=== PATIENT | female | born 1985 | race Caucasian/White ===

== ENCOUNTER 2018-11-02 08:31 | Inpatient (IN) | payer OTHER ==
--- NOTE | 2018-11-02 08:55 | PCM.LDHP ---
L&D History of Present Illness - General Date of Service: 11/02/18 Admit Problem/Dx: Patient Status Order with Admit Dx/Problem 11/02/18 08:45 Patient Status [ADT] Routine Admission Diagnosis/Problem Admission Diagnosis/Problem Labor established Source of Information: Patient History Limitations: Reports: No Limitations - History of Present Illness Introduction:: 11/02/18 33 yo here in active labor. Ctx started this am around 0400 at home. Membranes intact. GBS negative. All STI testing negative. O+ blood type. here for support. Declines IV and pain medications. Anticipating of girl. Timing/Duration: Reports: minutes: (2-3) Severity: Moderate Improves with: Reports: Movement Worsens with: Reports: None Associated Symptoms: Denies: vaginal bleeding, vaginal fluid Past Medical History [employer] History: Reports: Spontaneous : 4 Para: 2 LMP (Approximate): H&P Review of Systems - Review of Systems: Review Of Systems: See Below General: Reports: No Symptoms HEENT: Reports: No Symptoms Pulmonary: Reports: No Symptoms Cardiovascular: Reports: No Symptoms Gastrointestinal: Reports: No Symptoms Genitourinary: Reports: No Symptoms Musculoskeletal: Reports: No Symptoms Skin: Reports: No Symptoms Psychiatric: Reports: No Symptoms Neurological: Reports: No Symptoms Hematologic/Lymphatic: Reports: No Symptoms Immunologic: Reports: No Symptoms L&D Exam - Exam Exam: See Below - OB Specific Contraction Intensity: Strong Movement: Active Heart Tones: Present Heart Rate (FHR) Variability: Moderate (6-25 bmp) Presentation: Vertex Estimated Weight: 7.5# - Anderson Score Anderson Score Cervix Position: Midposition Anderson Score Consistency: Soft Anderson Score Effacement: >80% Anderson Score Dilation: > 5 cm Anderson Score Infant's Station: -1 ,0 Anderson Score Total: 11 - Exam General: Alert, Oriented HEENT: PERRLA, Conjunctiva Clear, EACs Clear, EOMI, Hearing Intact, Mucosa Moist & [place], Nares Patent, Normal Nasal Septum, Posterior Pharynx Clear, TMs Clear Neck: Supple, Trachea Midline Lungs: Clear to Auscultation, Normal Respiratory Effort Cardiovascular: Regular Rate, Regular Rhythm GI/Abdominal Exam: Normal Bowel Sounds, Soft, Non-Tender Rectal Exam: Normal Exam, Normal Rectal Tone Genitourinary: Normal external exam, Normal bimanual exam, Cervical dilitation, Enlarged uterus. No: Vaginal bleeding Back Exam: Normal Inspection, Full Range of Motion Extremities: Normal Inspection, Normal Range of Motion, Non-Tender, No Pedal Edema, Normal Capillary Refill Skin: Warm, Dry, Intact Neurological: Cranial Nerves Intact, Reflexes Equal Bilateral Psychiatric: Alert, Normal Affect, Normal Mood - Problem List (1) SNOMED Code(s): 64144597 ICD Code: Z34.90 - ENCNTR FOR SUPRVSN OF NORMAL , UNSP, UNSP TRIMESTER Status: Acute Current Visit: Yes (2) Mother negative for group B Streptococcus colonization SNOMED Code(s): 448841291, 958556820 ICD Code: TFJ7690 - Status: Acute Current Visit: Yes (3) Blood type O+ SNOMED Code(s): 401562853 ICD Code: Z67.40 - TYPE O BLOOD, RH POSITIVE Status: Acute Current Visit : Yes Problem List Initiated/Reviewed/Updated: Yes Orders Last 24hrs: Active Orders 24 hr Category Date Time Status Patient Status [ADT] Routine ADT 11/02/18 08:45 Ordered Communication Order [RC] ASDIRECTED Care 11/02/18 08:45 Ordered Heart Tones [RC] PER UNIT ROUTINE Care 11/02/18 08:45 Ordered Notify Provider Vital Signs [RC] PRN Care 11/02/18 08:48 Ordered Notify Provider [RC] PRN Care 11/02/18 08:45 Ordered Up ad Christel [RC] ASDIRECTED Care 11/02/18 08:45 Ordered VTE/DVT Education [RC] Click to Edit Care 11/02/18 08:47 Ordered Vital Signs [RC] PER UNIT ROUTINE Care 11/02/18 08:45 Ordered Regular Diet [DIET] Diet 11/02/18 Breakfast Ordered CBC WITH AUTO DIFF [HEME] Routine Lab 11/02/18 08:45 Ordered UA W/MICROSCOPIC [URIN] Routine Lab 11/02/18 08:45 Ordered DVT/VTE Prophylaxis Reflex [OM.PC] Routine Oth 11/02/18 08:45 Ordered Resuscitation Status Routine Resus Stat 11/02/18 08:45 Ordered Assessment/Plan Comment:: 11/02/18 33 yo here in active labor. SVE 7/100/0 GBS negative O + Desires no IV, no pain medication in labor Membranes intact Short strip obtained and was category 1 tracing Plan: Anticipate of female Tub for pain control No IV unless necessary Minimal monitoring, doptone mostly per patient request
[2018-11-02] MEDS ORDERED: Benzocaine 20% Top Spray 56 GM Bottle TOP ONE (09:43)
[2018-11-02] MEDS ORDERED: Witch Hazel Medicated Pads 100/Jar TOP ONE (09:43)
[2018-11-02] MEDS ORDERED: Oxytocin 10 Units/1 ML SDV IM PRN (09:43)
[2018-11-02] MEDS ORDERED: Lanolin 100% Cream 40 GM Tube TOP ONE (09:43)
--- NOTE | 2018-11-02 09:55 | PCM.DEL ---
L & D Note - General Info Date of Service: 11/02/18 Mother's Due Date: 11/03/18 - Delivery Note Labor: Spontaneous Delivery Outcome: Livebirth Infant Delivery Method: Spontaneous Vaginal Delivery-Single Infant Delivery Mode: Spontaneous Presentation: Left Occiput Anterior (TRACE) Nuchal Cord: None Anesthesia Type: None Episiotomy Type: None Laceration: None Placenta: Intact, Spontaneous Cord: 3 Vessels Estimated Blood Loss: 250 Resuscitation Needed: No Score 1 min: 9 Score 5 min: 10 Second Stage Interventions: Reports: Second Nurse Assessed Progress of Descent, Second Nurse Reviewed Contraction Pattern, Second Nurse Reviewed Heart Tones, Encouragement Given, Pushing Effectively, Pushing, Pulls Own Legs Back, Pushing, Right Side Delivery Comments (Free Text/Narrative):: 11/02/18 33 yo at 39 6/7 weeks presented in spontaneous labor this morning and delivered a viable female infant at 0929 after AROM of clear fluid. She progressed quickly and pushed on her right side delivering in TRACE position. Infant was placed on mothers abdomen with a spontaneous cry. Delayed cord clamping completed. Placenta delivered intact spontaneously with a 3 vessel cord. Fundus firm after fundal massage. EBL 250 mL. No pitocin given per patient request. No cervical or vaginal lacerations, perineum intact. Female infant weighs 7 lb 12 oz. - General Info Date of Service: 11/02/18 Functional Status: Reports: Pain Controlled - Review of Systems General: Reports: No Symptoms HEENT: Reports: No Symptoms Pulmonary: Reports: No Symptoms Cardiovascular: Reports: No Symptoms Gastrointestinal: Reports: No Symptoms Genitourinary: Reports: No Symptoms Musculoskeletal: Reports: No Symptoms Skin: Reports: No Symptoms Neurological: Reports: No Symptoms Psychiatric: Reports: No Symptoms - Patient Data Lab Results Last 24 Hours: Laboratory Results - last 24 hr 11/02/18 11/02/18 Range/Units 08:45 08:45 WBC 10.2 (4.5-11.0) K/uL RBC 3.73 (3.30-5.50) M/uL Hgb 11.9 L (12.0-15.0) g/dL Hct 35.9 L (36.0-48.0) % MCV 96 (80-98) fL MCH 32 H (27-31) pg MCHC 33 (32-36) % Plt Count 249 (150-400) K/uL Neut % (Auto) 75 H (36-66) % Lymph % (Auto) 17 L (24-44) % [place] % (Auto) 8 H (2-6) % Eos % (Auto) 0 L (2-4) % Baso % (Auto) 0 (0-1) % Urine Color Yellow (YELLOW) Urine Appearance Slightly cloudy A (CLEAR) Urine pH 6.5 (5.0-8.0) Ur Specific [place] 1.030 (1.008-1.030) Urine Protein Trace H (NEGATIVE) mg/dL Urine Glucose (UA) Normal (NEGATIVE) mg/dL Urine Ketones 15 H (NEGATIVE) mg/dL Urine Occult Blood Negative (NEGATIVE) Urine Nitrite Negative (NEGATIVE) Urine Bilirubin Negative (NEGATIVE) Urine Urobilinogen Normal (0.2-1.0) EU/dL Ur Leukocyte Esterase Negative (NEGATIVE) Urine RBC Not seen (0-5) Urine WBC 0-5 (0-5) Ur Epithelial Cells Moderate Amorphous Sediment Not seen Urine Bacteria Many Urine Mucus Moderate Med Orders - Current: Current Medications Benzocaine (Urkb-E-Foqdlpj 20% Baggs) 0 gm TOP Q4H ONE Stop: 11/02/18 09:44 Emollient Ointment (Lansinoh Hpa) 1 gm TOP ASDIRECTED ONE Stop: 11/02/18 09:44 Oxytocin (Pitocin) 10 unit IM ASDIRECTED PRN PRN Reason: excessive vaginal bleeding Witch Otilia (Tucks) 1 pad TOP ASDIRECTED ONE Stop: 11/02/18 09:44 - Exam General: Alert, Oriented HEENT: Pupils Equal, Pupils Reactive, EOMI, Mucous Membr. Moist/[place] Neck: Supple Lungs: Clear to Auscultation, Normal Respiratory Effort Cardiovascular: Regular Rate, Regular Rhythm GI/Abdominal Exam: Normal Bowel Sounds, Soft, Non-Tender, Pelvis Stable (Female) Exam: Normal External Exam, Normal Bimanual Exam, Enlarged Uterus, Vaginal Bleeding. No: Vaginal Lesions, Vaginal Tears Back Exam: Normal Inspection, Full Range of Motion Extremities: Normal Inspection, Normal Range of Motion, Non-Tender, No Pedal Edema, Normal Capillary Refill Skin: Warm, Dry, Intact Wound/Incisions: Healing Well Neurological: No New Focal Deficit Psy/Mental Status: Alert, Normal Affect, Normal Mood - Problem List & Annotations (1) SNOMED Code(s): 92977716 Code(s): Z34.90 - ENCNTR FOR SUPRVSN OF NORMAL , UNSP, UNSP TRIMESTER Status: Acute Current Visit: Yes (2) Mother negative for group B Streptococcus colonization SNOMED Code(s): 141632917, 542997366 Code(s): XJM8863 - Status: Acute Current Visit: Yes (3) Blood type O+ SNOMED Code(s): 058345818 Code(s): Z67.40 - TYPE O BLOOD, RH POSITIVE Status: Acute Current Visit: Yes (4) Normal vaginal delivery SNOMED Code(s): 81362794, 412263900 Code(s): O80 - ENCOUNTER FOR FULL-TERM UNCOMPLICATED DELIVERY Status: Acute Current Visit: Yes (5) started SNOMED Code(s): 072846082 Code(s): SAD0267 - Status: Acute Current Visit: Yes - Problem List Review Problem List Initiated/Reviewed/Updated: Yes - My Orders Last 24 Hours: My Active Orders 11/02/18 08:45 Patient Status [ADT] Routine Communication Order [RC] ASDIRECTED Heart Tones [RC] PER UNIT ROUTINE Notify Provider [RC] PRN Up ad Christel [RC] ASDIRECTED Vital Signs [RC] PER UNIT ROUTINE DVT/VTE Prophylaxis Reflex [OM.PC] Routine Resuscitation Status Routine 11/02/18 08:47 VTE/DVT Education [RC] Click to Edit 11/02/18 08:48 Notify Provider Vital Signs [RC] PRN 11/02/18 09:43 Patient Status [ADT] Routine Vital Signs [RC] PFP Consult to Natural Remedy Consultant [CONS] Routine Benzocaine [Lgix-R-Kmzuocl 20% Baggs] See Dose Instructions TOP Q4H ONE Lanolin [Lansinoh HPA] 1 gm TOP ASDIRECTED ONE Oxytocin [Pitocin] 10 unit IM ASDIRECTED PRN Witch Otilia [Tucks] 1 pad TOP ASDIRECTED ONE Assess Lochia [WOMSER] Per Unit Routine Assess Uterine Involution [WOMSER] Per Unit Routine 11/02/18 09:44 Ice Therapy [OM.PC] Per Unit Routine Perineal Care [OM.PC] Per Unit Routine Sitz Bath [OM.PC] Per Unit Routine 11/02/18 Breakfast Regular Diet [DIET] 11/03/18 06:00 CBC WITH AUTO DIFF [HEME] Routine - Assessment Assessment:: 11/02/18 33 yo at 39 6/7 weeks with Perineum intact EBL 250 mL initiated O pos blood type Desires no oral pain medication - Plan Plan:: 11/02/18 33 yo here in active labor. SVE 7/100/0 GBS negative O + Desires no IV, no pain medication in labor Membranes intact Short strip obtained and was category 1 tracing Plan: Anticipate of female Tub for pain control No IV unless necessary Minimal monitoring, doptone mostly per patient request 11/02/18 Routine cares support Pitocin only if needed for boggy uterus or excessive bleeding Anticipate discharge 24-48 hours
--- NOTE | 2018-11-02 12:04 | PCM.SN ---
- Free Text/Narrative Note: 11/02/18 Pt had had a boggy uterus and a steady trickle of blood since delivery despite the Pitocin IM. Baby has been on breast since , she has been massaging. She has not voided and uterus is off to the right. Told her to void and she agrees to 2 doses of PO Methergine 6 hours apart. EBL after delivery 350 mL.
[2018-11-02] MEDS: Methylergonovine 0.2 MG Tab PO SCH ×2 (12:08→17:59)
--- NOTE | 2018-11-03 07:49 | PCM.PNPP ---
- General Info Date of Service: 11/03/18 Functional Status: Reports: Pain Controlled - Review of Systems General: Reports: No Symptoms HEENT: Reports: No Symptoms Pulmonary: Reports: No Symptoms Cardiovascular: Reports: No Symptoms Gastrointestinal: Reports: No Symptoms Genitourinary: Reports: No Symptoms Musculoskeletal: Reports: No Symptoms Skin: Reports: No Symptoms Neurological: Reports: No Symptoms Psychiatric: Reports: No Symptoms - General Info Date of Service: 11/03/18 - Patient Data Vital Signs - Most Recent: Last Vital Signs Temp 95.3 F L 11/03/18 06:53 Pulse 58 L 11/03/18 07:26 Resp 18 11/03/18 06:53 BP 104/69 11/03/18 07:26 Pulse Ox 99 11/03/18 06:53 Weight - Most Recent: 171 lb I&O - Last 24 Hours: Intake & Output 11/02/18 11/03/18 11/03/18 22:59 06:59 14:59 Intake Total 480 Balance 480 Lab Results - Last 24 Hours: Laboratory Results - last 24 hr 11/02/18 11/02/18 11/03/18 Range/Units 08:45 08:45 05:20 WBC 10.2 9.4 (4.5-11.0) K/uL RBC 3.73 3.38 (3.30-5.50) M/uL Hgb 11.9 L 11.1 L (12.0-15.0) g/dL Hct 35.9 L 32.8 L (36.0-48.0) % MCV 96 97 (80-98) fL MCH 32 H 33 H (27-31) pg MCHC 33 34 (32-36) % Plt Count 249 226 (150-400) K/uL Neut % (Auto) 75 H 58 (36-66) % Lymph % (Auto) 17 L 30 (24-44) % [place] % (Auto) 8 H 11 H (2-6) % Eos % (Auto) 0 L 1 L (2-4) % Baso % (Auto) 0 0 (0-1) % Urine Color Yellow (YELLOW) Urine Appearance Slightly cloudy A (CLEAR) Urine pH 6.5 (5.0-8.0) Ur Specific [place] 1.030 (1.008-1.030) Urine Protein Trace H (NEGATIVE) mg/dL Urine Glucose (UA) Normal (NEGATIVE) mg/dL Urine Ketones 15 H (NEGATIVE) mg/dL Urine Occult Blood Negative (NEGATIVE) Urine Nitrite Negative (NEGATIVE) Urine Bilirubin Negative (NEGATIVE) Urine Urobilinogen Normal (0.2-1.0) EU/dL Ur Leukocyte Esterase Negative (NEGATIVE) Urine RBC Not seen (0-5) Urine WBC 0-5 (0-5) Ur Epithelial Cells Moderate Amorphous Sediment Not seen Urine Bacteria Many Urine Mucus Moderate Med Orders - Current: Current Medications Oxytocin (Pitocin) 10 unit IM ASDIRECTED PRN PRN Reason: excessive vaginal bleeding Last Admin: 11/02/18 11:08 Dose: 10 unit Discontinued Medications Benzocaine (Ftwk-L-Hgdaspb 20% [place]) 0 gm TOP Q4H ONE Stop: 11/02/18 09:44 Last Admin: 11/02/18 18:16 Dose: Not Given Emollient Ointment (Lansinoh Hpa) 1 gm TOP ASDIRECTED ONE Stop: 11/02/18 09:44 Last Admin: 11/02/18 18:16 Dose: Not Given Methylergonovine Maleate (Methergine) 0.2 mg PO Q6H HAILEE Last Admin: 11/02/18 17:59 Dose: 0.2 mg Witch Otilia (Tucks) 1 pad TOP ASDIRECTED ONE Stop: 11/02/18 09:44 Last Admin: 11/02/18 18:16 Dose: Not Given - Infant Interaction Disposition, : Abie in Room with Family Infant Interaction: Holding Infant Infant Feeding: Breastfed ; Nursed Well Support Person: - Recovery Exam Fundal Tone: Firm Fundal Level: 1 Fingerbreadths Below Umbilicus Fundal Placement: Midline Lochia Amount: Small Lochia Color: [place]/Red Perineum Description: Intact, Minimal Bruising/Swelling Episiotomy/Laceration: None Bladder Status: Nonpalpable Urinary Elimination: Voided - Exam General: Alert, Oriented HEENT: Pupils Equal, Pupils Reactive, Mucous Membr. Moist/[place] Neck: Supple Lungs: Clear to Auscultation, Normal Respiratory Effort Cardiovascular: Regular Rate, Regular Rhythm GI/Abdominal Exam: Normal Bowel Sounds, Soft, Non-Tender, No Organomegaly, No Distention, No Abnormal Bruit, No Mass, Pelvis Stable Extremities: Normal Inspection, Normal Range of Motion, Non-Tender, No Pedal Edema, Normal Capillary Refill Skin: Warm, Dry, Intact Neurological: No New Focal Deficit, Normal Gait Psy/Mental Status: Alert, Normal Affect, Normal Mood - Problem List & Annotations (1) SNOMED Code(s): 75205113 Code(s): Z34.90 - ENCNTR FOR SUPRVSN OF NORMAL , UNSP, UNSP TRIMESTER Status: Acute Current Visit: Yes (2) Mother negative for group B Streptococcus colonization SNOMED Code(s): 158347440, 516523431 Code(s): LEY0489 - Status: Acute Current Visit: Yes (3) Blood type O+ SNOMED Code(s): 295011522 Code(s): Z67.40 - TYPE O BLOOD, RH POSITIVE Status: Acute Current Visit: Yes (4) Normal vaginal delivery SNOMED Code(s): 84195810, 327335069 Code(s): O80 - ENCOUNTER FOR FULL-TERM UNCOMPLICATED DELIVERY Status: Acute Current Visit: Yes (5) started SNOMED Code(s): 655863155 Code(s): SXT5371 - Status: Acute Current Visit: Yes - Problem List Review Problem List Initiated/Reviewed/Updated: Yes - My Orders Last 24 Hours: My Active Orders 11/02/18 08:45 Patient Status [ADT] Routine Communication Order [RC] ASDIRECTED Up ad Christel [RC] ASDIRECTED Vital Signs [RC] PER UNIT ROUTINE DVT/VTE Prophylaxis Reflex [OM.PC] Routine Resuscitation Status Routine 11/02/18 08:47 VTE/DVT Education [RC] Click to Edit 11/02/18 08:48 Notify Provider Vital Signs [RC] PRN 11/02/18 09:43 Patient Status [ADT] Routine Vital Signs [RC] PFP Consult to Arabic Teacher [CONS] Routine Oxytocin [Pitocin] 10 unit IM ASDIRECTED PRN Assess Lochia [WOMSER] Per Unit Routine Assess Uterine Involution [WOMSER] Per Unit Routine 11/02/18 09:44 Ice Therapy [OM.PC] Per Unit Routine Perineal Care [OM.PC] Per Unit Routine Sitz Bath [OM.PC] Per Unit Routine 11/02/18 Breakfast Regular Diet [DIET] - Assessment Assessment:: 11/02/18 33 yo at 39 6/7 weeks with Perineum intact EBL 250 mL initiated O pos blood type Desires no oral pain medication 11/03/18 PP day 1 Hgb 11.9 to 11.1, bleeding is scant now and FF going well, no issues Pain controlled Desires discharge today - Plan Plan:: 11/02/18 33 yo here in active labor. SVE /0 GBS negative O + Desires no IV, no pain medication in labor Membranes intact Short strip obtained and was category 1 tracing Plan: Anticipate of female Tub for pain control No IV unless necessary Minimal monitoring, doptone mostly per patient request 11/02/18 Routine cares support Pitocin only if needed for boggy uterus or excessive bleeding Anticipate discharge 24-48 hours 11/03/18 support as needed this am Discharge home today 6 week PP check in clinic
== END 2018-11-03 11:00 | disposition home or self-care (01) | DRG 807 ==
LOC: JP.OBCHECK 08:31 → JP.OB 08:32 → JP.MS 09:30 → JP.OB 09:30 → OBSVTOIN 09:30
PROVIDERS: ADMIT Nurse Practitioner Family; ATTEND Nurse Practitioner Family
PROC: 10E0XZZ Delivery of Products of Conception, External Approach (ICD-10-PCS; principal; 2018-11-02)
PROC: 10907ZC Drainage of Amniotic Fluid, Therapeutic from Products of Conception, Via Natural or Artificial Opening (ICD-10-PCS; 2018-11-02)
DX: O80 Encounter for full-term uncomplicated delivery (principal); Z37.0 Single live birth; Z3A.39 39 weeks gestation of pregnancy
CPT/HCPCS: 36415; 59409; 81001; 85025; A9270-GY; J2590